=== PATIENT | male | born 2000 | race Hispanic/Latino ===

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

== ENCOUNTER 2022-01-10 15:36 | Emergency (ER) | payer BC | END 2022-01-10 16:01 | disposition home or self-care (01) | LOC: MADERS 15:36 | DX: S01.01XD Laceration without foreign body of scalp, subsequent encounter (principal); Z87.891 Personal history of nicotine dependence; X58.XXXD Exposure to other specified factors, subsequent encounter ==